=== PATIENT | female | born 1950 | race Caucasian/White ===

== ENCOUNTER 2017-09-19 06:28 | Day surgery (SDC) | payer OTHER ==
[~2017-09-19] VITALS: Ht 162.6 cm; Wt 79.5 kg
[~2017-09-19 06:28] MED LIST: BACL10TA PO; HYDR12.56 PO; METO25 PO; PLAV75TA PO; PRAV20 PO; TYLE3 PO
[2017-09-19 06:59] VITALS: BP 148/82; PULSE 71; RESP 20; TEMP 97.7; O2SAT 97
[2017-09-19] MEDS ORDERED: CLOP75TA PO (06:59)
[2017-09-19] MEDS ORDERED: PANT40TA3 PO (06:59)
[2017-09-19] MEDS ORDERED: PROC5TAB PO (06:59)
[2017-09-19] MEDS ORDERED: HYDR25TA5 PO (06:59)
[2017-09-19] MEDS ORDERED: POTA10TA2 PO (06:59)
[2017-09-19] MEDS ORDERED: ATOR40TA16 PO (06:59)
[2017-09-19] MEDS ORDERED: TRET10CA PO (06:59)
[2017-09-19] MEDS ORDERED: METO-426 PO (06:59)
[2017-09-19] MEDS ORDERED: METO25TA3 PO (06:59)
[2017-09-19 07:27] LABS: AUTOMATED NEUTROPHIL # 4.5 TH/MM3 (1.8-7.7); BASOPHIL # 0.1 TH/MM3 (0-0.2); BASOPHIL % 0.9 % (0.0-2.0); EOSINOPHIL # 0.3 TH/MM3 (0-0.4); EOSINOPHIL % 3.9 % (0.0-4.0); HEMATOCRIT 31.4 % (35.0-46.0); HEMOGLOBIN 10.9 GM/DL (11.6-15.3); LYMPH % 21.5 % (9.0-44.0); LYMPHOCYTE # 1.6 TH/MM3 (1.0-4.8); MEAN CELL VOLUME 89.2 FL (80.0-100.0); MEAN CORPUSCULAR HGB CONC 34.7 % (32.0-36.0); MONO % 14.1 % (0.0-8.0); MONOCYTE # 1.1 TH/MM3 (0-0.9); NEUT % 59.6 % (16.0-70.0); PLATELET COUNT 282 TH/MM3 (150-450); RED BLOOD COUNT 3.51 MIL/MM3 (4.00-5.30); RED CELL DISTRIBUTION WIDTH 18.7 % (11.6-17.2); WHITE BLOOD COUNT 7.5 TH/MM3 (4.0-11.0)
[2017-09-19] MEDS ORDERED: SODIUM CHLOR 0.9% 1000 ML IV SCH (07:45)
[2017-09-19] MEDS ORDERED: LIDOCAINE HCL 1% 20 ML VIAL ONE (07:59)
[2017-09-19] MEDS ORDERED: MIDAZOLAM HCL 2 MG/2 ML VIAL ONE (08:28)
[2017-09-19 09:05] VITALS: BP 131/77; PULSE 65; RESP 16; TEMP 97.7; O2SAT 96
[2017-09-19 09:20] VITALS: BP 132/74; PULSE 65; RESP 16; O2SAT 95
[2017-09-19 09:50] VITALS: BP 136/76; PULSE 63; RESP 16; O2SAT 95
[2017-09-19] MEDS ORDERED: ONDANSETRON HCL 4 MG/2 ML VIAL IV PUSH ONE (10:00)
--- NOTE | 2017-09-19 10:17 | RADRPT ---
EXAM DATE/TIME: 09/19/2017 08:33 [facility] COMPARISON: No previous studies available for comparison. INDICATIONS : Leukemia SEDATION TIME: 30 minutes BIOPSY SITE: Right ilium MEDICATION(S): 1.) 4 mg midazolam (Versed) IV 2.) 200 mcg fentanyl (Sublimaze) IV DEVICE(S): 1.) 12 gauge On-Control needle MEDICAL HISTORY : Leukemia. SURGICAL HISTORY : None. ENCOUNTER: Initial ACUITY: 1 day PAIN SCORE: 0/10 LOCATION: Right ilium A total of one core specimen(s) were obtained and sent to the laboratory for pathologic evaluation. PROCEDURE: 1. CT guided bone marrow biopsy. Prior to the procedure informed consent was obtained. Any appropriate prior imaging studies were rev iewed. Using automated exposure control and adjustment of the mA and/or kV according to patient size , radiation dose was kept as low as reasonably achievable to obtain optimal diagnostic quality images . DICOM format image data is available electronically for review and comparison. The site was prepped in a sterile fashion. Full sterile technique was used, including cap, mask, riki rile gloves and gown and a large sterile sheet. Hand hygiene and 2% chlorhexidine and/or betadine/al cohol prep was utilized per protocol for cutaneous antisepsis. The skin and subcutaneous tissues wer e infiltrated with local anesthetic solution. With CT guidance the previously identified target was localized. Biopsy was performed using the presc ribed needle as above. Following biopsy marrow aspiration was performed with repeat puncture. Adequa te hemostasis was obtained with compression at the puncture site. Follow-up CT scan reveals no hemorrhage. Conscious sedation was performed with the prescribed dosages and duration as above in the presence of an independent trained radiology nurse to assist in the monitoring of the patient. EKG and oximetry remained stable throughout the procedure. The patient tolerated the procedure well and there were no complications. The patient was sent to Radiology Outpatient Unit in stable condition. CONCLUSION: 1. Uncomplicated CT guided bone marrow aspirate. 2. Uncomplicated CT guided bone marrow biopsy. Fransico Hernández MD on September 19, 2017 at 10:15 Board Certified Radiologist. This report was verified electronically.
[2017-09-19 10:20] VITALS: BP 110/63; PULSE 65; RESP 16; O2SAT 95
[2017-09-19 10:50] VITALS: BP 129/77; PULSE 58; RESP 18; O2SAT 94
== END 2017-09-19 11:05 | disposition home or self-care (01) ==
LOC: HRAD 06:28 → HRIP 06:37 → HRAD 11:05
PROVIDERS: ATTEND Internal Medicine Hematology & Oncology
DX: C92.40 Acute promyelocytic leukemia, not having achieved remission (principal)
CPT/HCPCS: 38222; 77012; 81315; 85025; 85097; 88184; 88185; 88305; 88311; 88313; 99152; 99153; C1830; J2250; J2405; J3010; J7030

== ENCOUNTER 2017-10-04 07:46 | Day surgery (SDC) | payer OTHER ==
[~2017-10-04] VITALS: Ht 162.6 cm; Wt 80.9 kg
[~2017-10-04 07:46] MED LIST changes: +ATOR40TA16 PO; -BACL10TA PO; +CLOP75TA PO; -HYDR12.56 PO; +HYDR25TA5 PO; +METO-426 PO; -METO25 PO; +METO25TA3 PO; +PANT40TA3 PO; -PLAV75TA PO; +POTA10TA2 PO; -PRAV20 PO; +PROC5TAB PO; +TRET10CA PO; -TYLE3 PO
[2017-10-04 08:07] VITALS: BP 150/79; PULSE 65; RESP 20; TEMP 98.3; O2SAT 99
[2017-10-04] MEDS ORDERED: METO50TA PO (08:29)
[2017-10-04] MEDS ORDERED: SODIUM CHLORIDE 0.9% 1000 ML IV SCH (08:30)
[2017-10-04] MEDS ORDERED: VANCOMYCIN 1000 MG/NS 250 ML - implanted port/tunneled catheter IV SCH ×2 (08:30)
[2017-10-04] MEDS ORDERED: CHLORHEXIDINE GLUCONATE 2 % 1 PACK (2 CLOTHS) TOPICAL SCH (08:30)
[2017-10-04] MEDS ORDERED: POVIDONE IODINE 5% (ANTISEPSIS KIT) 4 APPLICATIONS EACH NARE SCH (08:30)
[2017-10-04] MEDS ORDERED: MIDAZOLAM HCL 2 MG/2 ML VIAL ONE ×2 (10:58→11:12)
[2017-10-04] MEDS ORDERED: LIDOCAINE 1%/EPINEPHrine 1:100,000 SOLN 30 ML VIAL ONE (11:06)
[2017-10-04 11:55] VITALS: BP 137/55; PULSE 63; RESP 18; TEMP 97.7; O2SAT 96
[2017-10-04 12:10] VITALS: BP 119/65; PULSE 56; RESP 18; O2SAT 93
[2017-10-04] MEDS ORDERED: SODIUM CHLORIDE 0.9% FLUSH 10 ML FLUSH IVF PRN (12:30)
--- NOTE | 2017-10-04 12:33 | PD.RAD ---
Post Procedure Progress Note Pre Procedure Diagnosis: (1) Leukemia Post Procedure Diagnosis: (1) Leukemia Procedure Date: Oct 04, 2017 Supervising Radiologist: Tk Harris JR Proceduralist/Assist: Brain Montes, RT(R), Jake Bowens RT(R) Anesthesia: Conscious Sedation Plan of Activity Patient to Unit: ROPU Patient Condition: Good See PACS Report for procedural detail/treatment Central Venous Access Device Procedure 1 Right Internal Jugular Infusaport Placement single lumen [place]: 8 Findings: Port in good position and functions well. OK to use. Plan F/U with IR or a physician in 10-14 days for a site check Jr. Steven,Tk Frazier MD Oct 04, 2017 12:33
[2017-10-04 12:40] VITALS: BP 139/75; PULSE 59; RESP 16; O2SAT 97
[2017-10-04 13:10] VITALS: BP 138/71; PULSE 59; RESP 18; O2SAT 97
--- NOTE | 2017-10-04 14:19 | RADRPT ---
EXAM DATE/TIME: 10/04/2017 10:36 [facility] COMPARISON: No previous studies available for comparison. INDICATIONS : Patient presents with leukemia in need of port placement for treatment. MEDICAL HISTORY : Anxiety DVT PE C-DIFF Hyperlipidemia Stroke Obesity Steatohepatitis SURGICAL HISTORY : Appendectomy Bone marrow aspiration Bone marrow biopsy Colonoscopy Back surgery ENCOUNTER: Initial ACUITY: 1 month PAIN SCORE: 0/10 LOCATION: N/A FLUORO TIME: 1.5 minutes IMAGE SERIES: 1 SEDATION TIME: 45 minutes ACCESS: Right internal jugular vein SEDATION: 1.) 4 mg midazolam (Versed) IV 2.) 200 mcg fentanyl (Sublimaze) IV Prophylactic antibiotics were administered with appropriate pre-procedure timing. Vancomycin within 2 hours of procedure, Ancef (or alternative) within 1 hour of procedure. DEVICE: 1. 8 Georgian single lumen Xcela Plus Port PROCEDURE : 1. Continuous pulse oximetry and EKG monitoring. 2. Intravenous conscious sedation. 3. Ultrasound guidance for venous access. 4. Fluoroscopic guided implantable central venous port placement. The patient was placed supine. The neck was prepped in sterile fashion. Full sterile technique was u sed, including cap, mask, sterile gloves and gown, and a large sterile sheet. Hand hygiene and 2% ch lorhexidine Betadine was utilized per protocol for cutaneous antisepsis with appropriate dry time for site. Sterile gel and sterile probe cover were utilized for ultrasound guidance. The skin and sub cutaneous tissues were infiltrated with local anesthetic solution. Under direct ultrasound guidance, central venous access was accomplished in the targeted vessel. The ultrasound images depicting access guidance were stored and saved to PACS for permanent record. A s ubcutaneous pocket was created using blunt dissection. The port was introduced to the pocket. The c atheter tubing was fed through a subcutaneous tunnel to the venotomy site. The catheter tubing was c ut to a suitable length and then was introduced through a valved Peel-Away sheath and positioned with catheter tubing tip at the cavo-atrial junction level. The pocket incision was closed with subcutic ular Vicryl suture. Steri-Strips were applied. The port was flushed and locked with heparin solutio n per protocol. Sterile dressing was applied to the site. The patient tolerated the procedure well. Conscious sedation was performed with the prescribed dosages and duration as above in the presence of an independent trained radiology nurse to assist in the monitoring of the patient. EKG and oximetry remained stable throughout the procedure. The patient tolerated the procedure well and there were no complications. The patient was sent to post anesthesia recovery in stable condition. CONCLUSION: Uncomplicated ultrasound and fluoroscopic guided implanted central venous port catheter placement as described in detail above. An 8 Georgian Power port was placed. Tk Harris Jr., MD on October 04, 2017 at 14:17 Board Certified Radiologist. This report was verified electronically.
== END 2017-10-04 14:10 | disposition home or self-care (01) ==
LOC: HROP 07:46 → HRIP 07:46 → HROP 14:10
PROVIDERS: ATTEND Internal Medicine Hematology & Oncology
DX: C95.90 Leukemia, unspecified not having achieved remission (principal); F41.9 Anxiety disorder, unspecified; E78.5 Hyperlipidemia, unspecified; E66.9 Obesity, unspecified; K75.81 Nonalcoholic steatohepatitis (NASH)
CPT/HCPCS: 36561; 76937; 77001; 99152; 99153; C1788; J0690; J1642; J2250; J3010; J3370; J7030; J7050